=== PATIENT | male | born 1965 | race African-American/Black ===

== ENCOUNTER 2022-06-04 13:27 | Emergency (ER) | payer MEDICAID, OTHER ==
[~2022-06-04] VITALS: Ht 172.7 cm; Wt 78.0 kg
[2022-06-04 13:32] VITALS: BP 157/114
[2022-06-04] MEDS ORDERED: TETRACAINE 0.5% OPHTH DROPS 4ML EACHEYE ONE (17:45)
[2022-06-04] MEDS ORDERED: FLUORESCEIN SODIUM 1MG/STRIP BOTHEYE ONE (17:45)
== END 2022-06-04 18:45 | disposition home or self-care (01) ==
LOC: ER 13:27
DX: T20.10XA Burn of first degree of head, face, and neck, unspecified site, initial encounter (principal); X08.8XXA Exposure to other specified smoke, fire and flames, initial encounter; Y93.89 Activity, other specified; Y92.89 Other specified places as the place of occurrence of the external cause; Y99.8 Other external cause status
CPT/HCPCS: 16000; 99283

== ENCOUNTER 2022-06-05 02:38 | Emergency (ER) | payer MEDICAID ==
[~2022-06-05] VITALS: Ht 172.7 cm; Wt 73.3 kg
[2022-06-05 05:53] VITALS: BP 128/67
== END 2022-06-05 05:55 | disposition home or self-care (01) ==
LOC: ER 02:38
DX: F41.9 Anxiety disorder, unspecified (principal)
CPT/HCPCS: 99281